=== PATIENT | female | born 1960 | race Caucasian/White ===

== ENCOUNTER 2017-10-23 16:54 | Outpatient (CLI) | payer BC | END 2017-10-23 16:55 | disposition home or self-care (01) | LOC: BICMAMMO 16:54 | PROVIDERS: ATTEND Internal Medicine | DX: Z12.31 Encounter for screening mammogram for malignant neoplasm of breast (principal); Z13.820 Encounter for screening for osteoporosis; M81.0 Age-related osteoporosis without current pathological fracture | CPT/HCPCS: 77063; 77067; 77080 ==

== ENCOUNTER 2018-02-01 05:59 | Day surgery (SDC) | payer BC ==
[2018-01-31 09:24] VITALS: BMI 17.9
[~2018-02-01 05:59] MED LIST: Cyclopentolate 1% Opth Drop 2 ML BOT FS SCH; EPINEPHrine 0.3 MG in Ophthalmic Irrigation Solution 500 ML FS SCH; Phenylephrine 2.5% Ophth Soln 5 ML BOT FS SCH
[2018-02-01] MEDS ORDERED: Midazolam HCl 2 mg/2 ml Vial ONE (06:11)
[2018-02-01] MEDS ORDERED: Fentanyl 100 MCG/2 ML VIAL ONE (06:11)
[2018-02-01] MEDS ORDERED: PROPOFOL 20 ML ONE (06:11)
[2018-02-01] MEDS ORDERED: Lidocaine 2% 10 ML INJ ONE (06:11)
[2018-02-01] MEDS ORDERED: Cyclopentolate 1% Opth Drop 2 ML BOT ONE (06:12)
[2018-02-01] MEDS ORDERED: Phenylephrine 2.5% Ophth Soln 5 ML BOT ONE (06:12)
[2018-02-01] MEDS ORDERED: PROPOFOL 200 MG/20 ML VIAL ONE (09:40)
[2018-02-01] MEDS ORDERED: Lidocaine 1% PF 5 ML VIAL ONE (09:40)
--- NOTE | 2018-02-01 13:27 | OP ---
DATE OF PROCEDURE: 02/01/2018 PREOPERATIVE DIAGNOSIS: Vitreous membranes. POSTOPERATIVE DIAGNOSIS: Vitreous membranes. PROCEDURE: Pars plana vitrectomy and membrane peel, left eye. SURGEON: Jose Roberto Waldrop M.D. ANESTHESIA: Local with monitored anesthesia care. COMPLICATIONS: None. PROCEDURE IN DETAIL: The patient was identified in the preoperative holding area. appropriate conse nt for planned surgical procedure on the left eye had been obtained. The patient was transported to suite. Appropriate cardiopulmonary monitoring was established. Local anesthesia was obtained using retrobulbar and modified [place] Lint lid block using 50:50 mixture of 4% lidocaine and 0.75% bupivacaine . The patient was prepped and draped in the usual sterile manner for ophthalmic surgery on the left eye. Lid speculum was placed in the left eye. The 25-gauge trocars were placed in conjunctiva and s clera supratemporally, inferotemporally and supranasally. Infusion line was placed inferotemporally. Light pipe and vitreous cutter were inserted into the eye. Core vitrectomy was performed. Vitreou s membranes were removed from the eye and peeled from the retinal surface and wide field viewing syst em was used with the scleral depressor to examine the retina 360 degrees. No holes, breaks or tears were identified. Trocars were removed and eye was noted to retain pressure well. Retrobulbar [place] and subconjunctival Ancef were placed. Atropine and antibiotic ointment placed and the eye was pat ched and shielded. The patient was taken to the postoperative care unit in good condition having suf fered no immediate perioperative complications. DISCHARGE INSTRUCTIONS: The patient was instructed to keep patch and shield on, avoid lifting or aditya ding and follow up in the morning with Dr. Waldrop.
== END 2018-02-01 08:18 | disposition home or self-care (01) ==
LOC: SDC 05:59
PROVIDERS: ATTEND Ophthalmology Retina Specialist
PROC: 08T53ZZ Resection of Left Vitreous, Percutaneous Approach (ICD-10-PCS; principal; 2018-02-01)
PROC: 08NF3ZZ Release Left Retina, Percutaneous Approach (ICD-10-PCS; principal; 2018-02-01)
DX: H43.312 Vitreous membranes and strands, left eye (principal); Z88.1 Allergy status to other antibiotic agents; Z88.2 Allergy status to sulfonamides; Z88.8 Allergy status to other drugs, medicaments and biological substances
CPT/HCPCS: J0171; J2001; J2250; J2704; J3010